=== PATIENT | female | born 1990 | race Caucasian/White ===

== ENCOUNTER 2023-03-25 04:10 | Emergency (ER) | payer MEDICAID, SELFPAY ==
[2023-03-25 04:14] VITALS: BMI 24.7
[2023-03-25 04:17] VITALS: BP 198/143; PULSE 114; RESP 16; TEMP 36.6; O2SAT 98
--- NOTE | 2023-03-25 04:27 | ED_ITS ---
HPI - Skin/Abscess/Foreign Bdy General: Chief complaint: Skin/Abscess/Foreign Body Stated complaint: abscess to back Time Seen by Provider: 03/25/23 04:12 Source: patient Mode of arrival: ambulatory Limitations: no limitations History of Present Illness: 32-year-old female states she had an abscess to her upper back over the last 6 days. States very painful she rates her pain 8 out of 10 has had some slight drainage she has had a history of MRSA she denies any fevers. Is worse with touch improved with rest. Associated symptoms: Deny chills, fever(s), nausea or vomiting Review of Systems Const: Denies: fever(s), chills or body aches ENMT: Denies: throat pain or dental pain Card: Denies: chest pain Resp: Denies: dyspnea GI: Denies: abdominal pain, nausea, vomiting or diarrhea Musc: Reports: back pain; Denies: neck pain Skin/Breast: Denies: rash Neuro: Denies: headache(s) Physical Exam Const: COMMON NORMALS: no acute distress and patient oriented x3 HENMT: COMMON NORMALS: normocephalic HEAD & SCALP: normocephalic Eye: COMMON NORMALS: conjunctivae normal CONJUNCTIVA: Yes conjunctivae normal Chest: COMMONS NORMALS: normal inspection of the chest Resp: COMMON NORMALS: normal respiratory effort Cardio: COMMON NORMALS: regular rate RATE: regular rate GI: INSPECTION: Yes normal to inspection Back/Pelvis: OTHER: Large 5 cm abscess to upper back Extremity: COMMON NORMALS: normal to inspection Neuro: COMMON NORMALS: patient oriented x3 Psych: COMMON NORMALS: mental status grossly normal Skin: COMMON NORMALS: no rashes or lesions noted GENERAL SKIN EXAM: no rashes or lesions noted Procedures Abscess I/D Site: back Local Anesthetic: lidocaine 1% Amount of anesthesia used (mL): 10 Technique: incised with #11 blade Packing used?: iodoform Course Vital Signs: Vital signs: Vital Signs Temperature 97.8 F 03/25/23 04:17 Pulse Rate 114 H 03/25/23 04:17 Respiratory Rate 16 03/25/23 04:17 Blood Pressure 198/143 03/25/23 04:17 Pulse Oximetry 98 03/25/23 04:17 Oxygen Delivery Me thod Room Air 03/25/23 04:17 MDM - Skin/Abscess/Foreign Bdy Medicial Decision Making Patient presents with an abscess was incised and drained packing was placed she is return in 2 to 3 days for packing removal we will place her on antibiotics along with pain meds she understands agrees to plan. Medical Records I reviewed the patient's medical records. Discharge Plan Discharge Patient Disposition: Home Clinical Impression: Abscess of skin or subcutaneous tissue Condition: Stable Prescriptions: New hydrocodone-acetaminophen 5-325 mg tablet 1 tab PO Q6H PRN (Reason: pain) Qty: 8 0RF Bactrim DS 800-160 mg tablet 1 tab PO BID 10 Days Qty: 20 0RF Discharge Orders: Discharge ED (Routine); Ordered 03/25/23 Ordered By: Natasha Harvey Discharge Diet: Advance as tolerated Discharge Activity: Resume usual activity Patient Instructions: Abscess (ED) Coding Level of Care Code ED [employer] Technician for Jamaal Cotton
[2023-03-25] MEDS: sulfamethoxazole-trimeth DS 160-800 mg Tablet 1 TAB PO (04:35)
[2023-03-25] MEDS: HYDROcodone-acetaminophen 5-325 mg Tablet 1 TAB PO (04:35)
[2023-03-25 04:55] VITALS: BP 198/143; PULSE 114; RESP 16; TEMP 36.6; O2SAT 98
--- NOTE | 2023-03-27 13:21 | DCPLANNER ---
senior marketing manager called patient due to no primary care physician - patient declines at this time.
== END 2023-03-25 04:57 | disposition home or self-care (01) ==
PROVIDERS: Emergency Provider Emergency Medicine
DX: L02.212 Cutaneous abscess of back [any part, except buttock and flank] (principal)
CPT/HCPCS: 10060; 99283

== ENCOUNTER 2023-03-28 11:47 | Emergency (ER) | payer MEDICAID, SELFPAY ==
[2023-03-28 11:53] VITALS: BP 194/162; PULSE 91; RESP 17; O2SAT 100; BMI 24.7
--- NOTE | 2023-03-28 12:30 | PC.NURSE ---
PT NOT IN ROOM WILL ATTEMPT TO ADM MEDS AND OBTAIN BLOOD WORK LATER.
--- NOTE | 2023-03-28 12:45 | W.ED.WOUNDLC ---
HPI - Wound/Laceration General: Chief Complaint: Wound/Laceration Stated Complaint: packing removal Time Seen by Provider: 03/28/23 11:56 Source: patient Mode of arrival: ambulatory History of Present Illness: 32-year-old female presents emergency room with complaints of abscess. She was seen several days ago in the emergency room she had an incision and drainage of an abscess packing was placed she is post come back for a wound recheck to urgent care came to the emergency room today. She admits she is a couple of days late for the wound recheck. She states she has been nauseous and vomiting has not been able to keep down the antibiotic last couple of days the wound is getting more tender. Subjective fever. Onset (ago): day(s) Associated symptoms: Reports nausea and vomiting; Denies chills or fever(s) Review of Systems Const: Denies: fever(s) or chills ENMT: Denies: throat pain, ear or mastoid pain, nasal discharge or nasal congestion Card: Denies: chest pain, edema, dyspnea on exertion or orthopnea Resp: Denies: dyspnea, productive cough or non-productive cough GI: Reports: nausea and vomiting; Denies: abdominal pain : Denies: flank pain, difficulty voiding, dysuria, urinary frequency or urinary urgency Skin/Breast: Denies: rash or pruritus Physical Exam Const: ORIENTATION/CONSCIOUSNESS: Yes awake, Yes oriented to person, Yes oriented to place and Yes oriented to time HENMT: COMMON NORMALS: normocephalic, atraumatic and hearing grossly normal bilaterally HEAD & SCALP: normocephalic and atraumatic Resp: COMMON NORMALS: normal respiratory effort, No retractions, No use of accessory muscles and clear to auscultation bilaterally AUSCULTATION: clear to auscultation bilaterally Cardio: COMMON NORMALS: regular rate, regular rhythm and No murmurs present (Cardio) RATE: regular rate RHYTHM: regular rhythm Extremity: COMMON NORMALS: normal to inspection, capillary refill normal, no clubbing, cyanosis or edema, no calf tenderness and no pedal edema Neuro: SENSORIUM/ORIENTATION: Yes oriented to person, Yes oriented to place and Yes oriented to time Skin: OTHER: Approximately 4 inch irregular shaped round erythematous area is exquisitely tender to the touch packing removed there is some purulent drainage some other small abscess formation areas. See notes Procedures Abscess I/D Site: back (Right upper back) Side (if applicable): right Local Anesthetic: lidocaine 1% Amount of anesthesia used (mL): 5 Technique: incised with #11 blade Amount of fluid expressed (mL): 2 Irrigation: No Packing used?: none Complications: pain Course Vital Signs: Vital signs: Vital Signs Pulse Rate 102 H 03/28/23 14:47 Respiratory Rate 18 03/28/23 14:47 Blood Pressure 155/130 03/28/23 14:47 Pulse Oximetry 97 03/28/23 14:47 Oxygen Delivery Me thod Room Air 03/28/23 11:53 MDM - Wound/Laceration Medical Decision Making Several small scattered abscess-like areas small areas were deroofed with the edge of an 18-gauge needle larger area was incised with 11 blade small amount of fluid drained. No culture at previous incision and drainage since she has been on antibiotics we did not do one today. Patient has only had a couple of doses of her antibiotics she missed several because of nausea and there is a delay in initially getting it filled as well. We will discharge her home with antiemetics continue pain medications use antiemetics as needed warm moist compresses to the area and recheck with her primary care doctor in a few days. If has any worsening or change symptoms return Medical Records I reviewed the patient's medical records. Lab Data I reviewed the patient's lab results. 03/28/23 13:10 03/28/23 13:10 Laboratory Results WBC 10.3 10^3/uL (4.0-10.0) H 03/28/23 13:10 RBC 5.09 10^6/uL (4.1-5.3) 03/28/23 13:10 Hgb 15.4 g/dL (11.5-15.3) H 03/28/23 13:10 Hct 48.2 % (37.0-47.0) H 03/28/23 13:10 MCV 94.7 fl (81-99) 03/28/23 13:10 MCH 30.3 pg (28.0-34.0) 03/28/23 13:10 MCHC 32.0 g/dL (30.0-36.0) 03/28/23 13:10 RDW 12.6 % (12.1-15.1) 03/28/23 13:10 Plt Count 412 10^3/cmm (130-400) H 03/28/23 13:10 MPV 8.7 fL (7.4-10.4) 03/28/23 13:10 Neut % (Auto) 61.1 % 03/28/23 13:10 Lymph % (Auto) 25.5 % 03/28/23 13:10 Garfield % (Auto) 7.1 % 03/28/23 13:10 Eos % (Auto) 4.3 % 03/28/23 13:10 Baso % (Auto) 0.8 % 03/28/23 13:10 Neut # (Auto) 6.33 10^3/uL (1.8-7.7) 03/28/23 13:10 Lymph # (Auto) 2.6 10^3/uL (0.8-4.8) 03/28/23 13:10 Garfield # (Auto) 0.7 10^3/uL (0.2-0.9) 03/28/23 13:10 Eos # (Auto) 0.4 10^3/uL (0.0-0.8) 03/28/23 13:10 Baso # (Auto) 0.1 10^3/uL (0.0-0.1) 03/28/23 13:10 Nucleated RBC % (auto) 0 % 03/28/23 13:10 Nucleated RBCs # 0.0 /100WBC 03/28/23 13:10 Sodium 134 mmol/L (136-145) L 03/28/23 13:10 Potassium 4.6 mmol/L (3.5-5.1) 03/28/23 13:10 Chloride 98 mmol/L (98-107) 03/28/23 13:10 Carbon Dioxide 24 mmol/L (22-29) 03/28/23 13:10 Anion Gap 16.6 (5-19) 03/28/23 13:10 BUN 18 mg/dL (6-20) 03/28/23 13:10 Creatinine 0.8 mg/dL (0.5-0.9) 03/28/23 13:10 GFR Calculation 82.6 mL/min (90-130) L 03/28/23 13:10 Glucose 91 mg/dL (65-115) 03/28/23 13:10 Calculated Osmolality 279 mOsm/kg (285-295) L 03/28/23 13:10 Calcium 9.5 mg/dL (8.5-10.5) 03/28/23 13:10 Discharge Plan Discharge Patient Disposition: Home Clinical Impression: Abscess of skin or subcutaneous tissue Condition: Stable Prescriptions: New promethazine 25 mg tablet 25 mg PO Q6H PRN (Reason: nausea and vomiting) Qty: 20 0RF amlodipine 10 mg tablet 10 mg PO DAILY Qty: 30 0RF No Action hydrocodone-acetaminophen 5-325 mg tablet 1 tab PO Q6H PRN (Reason: pain) Qty: 8 0RF sulfamethoxazole-trimethoprim [Bactrim DS] 800-160 mg tablet 1 tab PO BID 10 Days Qty: 20 0RF Cozaar 25 mg tablet 25 mg PO DAILY mupirocin 2 % ointment 1 applic TOPICAL BEDTIME labetalol 100 mg tablet 100 mg PO DAILY ibuprofen 200 mg Capsule 600 mg PO Q6H PRN (Reason: Pain) Discharge Orders: Discharge ED (Routine); Ordered 03/28/23 Ordered By: Albert Mora Discharge Diet: Usual diet Discharge Activity: Increase activity as tolerated Patient Instructions: Opioid Safety, Pain Management Activity Restrictions/Additional Instructions: Continue oral antibiotic pain medication as needed use the promethazine for nausea or vomiting. Recheck with your primary care doctor on Thursday in 2 days return if you are unable to keep medications down. Coding Level of Care Code ED [employer] Manager for Jamaal Cotton
[2023-03-28] MEDS: sodium chloride 0.9% 1,000 ML 999 ML IV (13:19)
[2023-03-28 13:20] VITALS: RESP 16
[2023-03-28] MEDS: ondansetron 2 mg/ML SDV 2 mL 4 MG IVP (13:20)
[2023-03-28] MEDS: morphine 4 mg/mL SDV 1 mL IVP (13:20)
[2023-03-28 13:31] LABS: Basophils # 0.1 10^3/uL (0.0-0.1); Basophils % 0.8 %; Eosinophils # 0.4 10^3/uL (0.0-0.8); Eosinophils % 4.3 %; Hematocrit 48.2 % (37.0-47.0); Hemoglobin 15.4 g/dL (11.5-15.3); Lymphocytes # 2.6 10^3/uL (0.8-4.8); Lymphocytes % 25.5 %; Mean Corpuscular Hemoglobin 30.3 pg (28.0-34.0); Mean Corpuscular Volume 94.7 fl (81-99); Mean Platelet Volume 8.7 fL (7.4-10.4); Monocytes # 0.7 10^3/uL (0.2-0.9); Monocytes % 7.1 %; Neutrophils # 6.33 10^3/uL (1.8-7.7); Neutrophils % 61.1 %; Nucleated Red Blood Cells % 0 %; Platelet Count 412 10^3/cmm (130-400); Red Blood Count 5.09 10^6/uL (4.1-5.3); Red Cell Distribution Width 12.6 % (12.1-15.1); White Blood Count 10.3 10^3/uL (4.0-10.0)
[2023-03-28 13:46] LABS: Anion Gap 16.6 (5-19); Blood Urea Nitrogen 18 mg/dL (6-20); Calcium 9.5 mg/dL (8.5-10.5); Carbon Dioxide 24 mmol/L (22-29); Chloride 98 mmol/L (98-107); Glomerular Filtration Rate 82.6 mL/min (90-130); Glucose 91 mg/dL (65-115); Osmolality Calculated 279 mOsm/kg (285-295); Potassium 4.6 mmol/L (3.5-5.1); Sodium 134 mmol/L (136-145)
--- NOTE | 2023-03-28 14:22 | PC.NURSE ---
UPON DC PT BP IS 210/63 VO FOR 20MG OF HYDRALAZINEIVP ONE TIME.
[2023-03-28] MEDS: hyDRALAzine 20 mg/mL INJ 1 mL IVP (14:24)
[2023-03-28 14:47] VITALS: BP 155/130; PULSE 102; RESP 18; O2SAT 97
--- NOTE | 2023-03-28 14:47 | PC.NURSE ---
dr gilbert notified of blood pressure and gave verbal okay to dc
--- NOTE | 2023-04-01 13:09 | DCPLANNER ---
regulatory compliance manager called patient due to no primary care physician - patient declines at this time.
== END 2023-03-28 14:57 | disposition home or self-care (01) ==
PROVIDERS: Emergency Provider Family Medicine
DX: L02.212 Cutaneous abscess of back [any part, except buttock and flank] (principal)
CPT/HCPCS: 10060; 80048; 85025; 87040; 96361; 96374; 96375; 99284; J0360; J2270; J2405; J7030

== ENCOUNTER → 2023-08-05 10:25 | Outpatient (BNVA) | payer MEDICAID, SELFPAY | PROVIDERS: Visit Provider Emergency Medicine | DX: R04.0 Epistaxis (principal); I10 Essential (primary) hypertension | CPT/HCPCS: 85018 ==